=== PATIENT | female | born 1935 ===

== ENCOUNTER 2018-02-28 17:21 | Inpatient (IN) | payer MEDICARE, MEDICAID ==
[2018-02-28] MEDS ORDERED: Iohexol 240 (50 ml) PO ONE (18:43)
[2018-02-28] MEDS ORDERED: Sodium Chloride 0.9% 500 ML IV STA (18:43)
--- NOTE | 2018-02-28 18:45 | ED PDOC ---
HPI: Abdomen Time Seen by Provider: 02/28/18 18:28 Chief Complaint (Nursing): Abdominal Pain Chief Complaint (Provider): Abd pain History Per: Patient History/Exam Limitations: no limitations Onset/Duration Of Symptoms: Days (Sunday) Additional Complaint(s): Pt. with weakness all over since Sunday. Sunday onward started getting nausea/vomit with no blood in it. Has abd pain all over. No diarrhea. No chest pain, dyspnea, headaches, dizziness, back pain. Past Medical History Reviewed: Nursing Documentation, Vital Signs Vital Signs: Last Vital Signs Temp 98.3 F 02/28/18 17:25 Pulse 72 02/28/18 17:25 Resp 18 02/28/18 17:25 BP 181/94 H 02/28/18 17:25 Pulse Ox 99 02/28/18 17:25 - Medical History PMH: Asthma, Dementia, HTN - Surgical History Surgical History: Appendectomy, Tonsillectomy - Family History Family History: States: Unknown Family Hx - Living Arrangements Living Arrangements: With Family - Social History Alcohol: None Drugs: Denies - Home Medications Home Medications: Ambulatory Orders Medication Instructions Recorded Aspirin [Ecotrin] 81 mg PO DAILY 02/28/18 Cholecalciferol (Vitamin D3) 400 unit PO DAILY 02/28/18 [Vitamin D-400] Cyanocobalamin [Vitamin B12] 500 mcg PO DAILY 02/28/18 Lisinopril [Zestril] 5 mg PO DAILY 02/28/18 Memantine HCl/Donepezil HCl 1 each PO DAILY 02/28/18 [Namzaric Titration Pack] - Allergies Allergies/Adverse Reactions: Allergies Allergy/AdvReac Type Severity Reaction Status Date / Time No Known Allergies Allergy Verified 02/28/18 17:24 Review of Systems ROS Statement: Except As Marked, All Systems Reviewed And Found Negative Constitutional: Positive for: Weakness Gastrointestinal: Positive for: Nausea, Vomiting, Abdominal Pain Neurological: Positive for: Weakness Physical Exam - Reviewed Nursing Documentation Reviewed: Yes Vital Signs Reviewed: Yes - Physical Exam Appears: Positive for: Non-toxic, No Acute Distress Head Exam: Positive for: ATRAUMATIC, NORMAL INSPECTION, NORMOCEPHALIC Skin: Positive for: Normal Color, Warm, DRY Eye Exam: Positive for: EOMI, Normal appearance, PERRL ENT: Positive for: Normal ENT Inspection Neck: Positive for: Normal, Painless ROM Cardiovascular/Chest: Positive for: Regular Rate, Rhythm Respiratory: Positive for: CNT, Normal Breath Sounds Gastrointestinal/Abdominal: Positive for: Soft, Tenderness (diffuse) Back: Positive for: Normal Inspection. Negative for: L CVA Tenderness, R CVA Tenderness Extremity: Positive for: Normal ROM. Negative for: Tenderness, Pedal Edema Neurologic/Psych: Positive for: Alert, Oriented - ECG O2 Sat by Pulse Oximetry: 99 Pulse Ox Interpretation: Normal - Progress ED Course And Treament: 1846: Dr. Churchill to take over care. Fu on Ct and labs. Disposition - Clinical Impression Clinical Impression: Abdominal pain - Patient ED Disposition Is Patient to be Admitted: Transfer of Care - Disposition Disposition Time: 18:47 Condition: STABLE Patient Signed Over To: Yousif Churchill
[2018-02-28] MEDS ORDERED: Iohexol 240 (50 ml) ONE (18:52)
[2018-02-28 19:13] LABS: BASO # 0.1 K/uL (0.0-0.2); BASO % 1.1 % (0.0-2.0); EOS # 0.1 K/uL (0.0-0.7); EOS % 0.9 % (0.0-4.0); HEMOGLOBIN 13.8 g/dL (12.0-16.0); LYMPH # 1.3 K/uL (1.0-4.3); LYMPH % 18.3 % (20.0-40.0); MEAN CELL VOLUME 91.8 fl (81.0-99.0); MEAN CORPUSCULAR HEMOGLOBIN 30.8 pg (27.0-31.0); MEAN CORPUSCULAR HGB CONC 33.6 g/dL (33.0-37.0); MEAN PLATELET VOLUME 9.6 fl (7.2-11.7); MONO # 0.7 K/uL (0.0-0.8); MONO % 10.5 % (0.0-10.0); NEUT # 4.8 K/uL (1.8-7.0); NEUT % 69.2 % (50.0-75.0); NRBC % 0.1 % (0.0-0.0); RBC 4.47 Mil/uL (3.80-5.20); RED CELL DISTRIBUTION WIDTH 13.9 % (11.5-14.5); WHITE BLOOD COUNT 6.9 K/uL (4.8-10.8)
[2018-02-28 19:20] LABS: ALB/GLOB RATIO 1.3 (1.0-2.1); ALBUMIN 4.4 g/dL (3.5-5.0); ALT/SGPT 44 U/L (9-52); AST/SGOT 51 U/L (14-36); BLOOD UREA NITROGEN 13 mg/dl (7-17); CALCIUM 9.6 mg/dL (8.4-10.2); GFR NON-AFRICAN AMERICAN > 60; LIPASE 48 U/L (23-300)
--- NOTE | 2018-02-28 19:27 | ED PDOC ---
- Laboratory Results Result Diagrams: 02/28/18 18:45 02/28/18 18:45 - ECG O2 Sat by Pulse Oximetry: 99 (RA) Pulse Ox Interpretation: Normal Medical Decision Making Medical Decision Making: Time: 19:00 --Patient care endorsed from Dr. Sy to provider pending CT scan. 01:23 -CT shows acute sigmoid colitis. Ordering cipro and flagyl. Patient will be admitted for acute colitis. 01:25 -Spoke with Dr. Rico who is covering for Dr. Cedeño. Scribe Attestation: Documented by Ramy Galindo, acting as a scribe for Yousif Cuhrchill MD. Provider Scribe Attestation: All medical record entries made by the Scribe were at my direction and personally dictated by me. I have reviewed the chart and agree that the record accurately reflects my personal performance of the history, physical exam, m edical decision making, and the department course for this patient. I have also personally directed, reviewed, and agree with the discharge instructions and disposition. Disposition Discussed With DrDylan: Michael Rico Counseled Patient/Family Regarding: Studies Performed, Diagnosis - Clinical Impression Clinical Impression: Colitis - POA Present On Arrival: None - Disposition Disposition: Admitted as In-Patient Disposition Time: :23 Condition: FAIR
[2018-02-28 19:38] LABS: SQUAMOUS EPITHIAL 2 /hpf (0-5); URINE BILIRUBIN NEGATIVE (NEGATIVE); URINE BLOOD MODERATE (NEGATIVE); URINE CLARITY SLIGHTY-CLOUDY (Clear); URINE COLOR YELLOW (YELLOW); URINE GLUCOSE (UA) NEG (Normal); URINE LEUKOCYTE ESTERASE TRACE Leu/uL (Negative); URINE PROTEIN 30 mg/dL (NEGATIVE)
[2018-02-28] MEDS ORDERED: Iohexol 300 100 ML IJ ONE (22:10)
[2018-02-28] MEDS ORDERED: Sodium Chloride 0.9% 50 ML IV ONE (22:10)
[2018-03-01] MEDS ORDERED: Ciprofloxacin 400mg/200ml D5W 400 MG/200 ML BAG IV STA (01:23)
[2018-03-01] MEDS ORDERED: metroNIDAZOLE 500mg/100ml NS 100 ML IVPB STA (01:23)
[2018-03-01] MEDS ORDERED: Ciprofloxacin 400mg/200ml D5W 400 MG/200 ML BAG IVPB ONE (03:28)
[2018-03-01] MEDS ORDERED: metroNIDAZOLE 500mg/100ml NS 100 ML IVPB ONE (03:28)
[2018-03-01] MEDS: metroNIDAZOLE 500mg/100ml NS 100 ML IVPB SCH ×2 (08:42→16:35)
[2018-03-01] MEDS: Ciprofloxacin 400mg/200ml D5W 400 MG/200 ML BAG IVPB SCH ×2 (08:42→20:58)
[2018-03-01] MEDS ORDERED: Pneumococcal 23-Valent Vaccine IM ONE (09:00)
[2018-03-01] MEDS ORDERED: MEMANTINE HCL PO SCH (09:00)
[2018-03-01] MEDS ORDERED: DONEPEZIL HCL PO SCH (09:00)
[2018-03-01] MEDS: CYANOCOBALAMIN 500 MCG TAB PO SCH (09:39)
[2018-03-01] MEDS: Cholecalciferol 400 Intl Units Tab PO SCH (09:39)
--- NOTE | 2018-03-01 10:34 | CP.PCM.HP ---
History of Present Illness - History of Present Illness History of Present Illness: 82 yo female with pmhx HTN and cognitive impairment presented to [facility] ED yesterday with complaints of intermittent nausea and NBNB vomiting for 4 days associated with diffuse abdominal pain. Denies any bloody or dark stool. Denies fever, chills, headache, chest pain or dyspnea. In ED, patients CT of A/P showed mild changes of acute sigmoid colitis. No perforation or abscess formation. Patient was admitted for management of acute sigmoid colitis. ROS: all 12 systems reviewed and negative except as mentioned in HPI. PMD: unknown PMHX: HTN, Cognitive impairment, asthma, hearing impairment. PSHX: appendectomy, tonsillectomy and c-sections x 3 Social hx: former smoker, quit many years ago. Denies alcohol or other drugs uses. Lives with her daughter. Family hx: denies hx HTN, DMII or CAD Medications: reviewed, aspirin 81mg, vitmin B12 500 mcg daily, vitamin d 400 unit tab daily, lisinopril 5 mg po daily and memantine/donepezil Allergies: NKDA Present on Admission - Present on Admission Any Indicators Present on Admission: No Review of Systems - Review of Systems All systems: reviewed and no additional remarkable complaints except Past Patient History - Past Medical History & Family History Past Medical History?: Yes - Past Social History Smoking Status: Never Smoked - CARDIAC Hx Cardiac Disorders: Yes (hypertension) Hx Hypertension: Yes - PULMONARY Hx Respiratory Disorders: Yes (asthma) Hx Asthma: Yes - NEUROLOGICAL Hx Neurological Disorder: Yes (Dementia) Hx Dementia: Yes - HEENT Hx HEENT Problems: Yes Other/Comment: hard of hearing, eyeglasses - RENAL Hx Chronic Kidney Disease: No - ENDOCRINE/METABOLIC Hx Endocrine Disorders: No - HEMATOLOGICAL/ONCOLOGICAL Hx Blood Disorders: No Hx AIDS: No Hx Human Immunodeficiency Virus (HIV): No - INTEGUMENTARY Hx Dermatological Problems: No - MUSCULOSKELETAL/RHEUMATOLOGICAL Hx Musculoskeletal Disorders: Yes Hx Falls: Yes (yrs ago per dgtr) - GASTROINTESTINAL Hx Gastrointestinal Disorders: No - GENITOURINARY/GYNECOLOGICAL Hx Genitourinary Disorders: No - PSYCHIATRIC Hx Psychophysiologic Disorder: No Hx Substance Use: No - SURGICAL HISTORY Hx Surgeries: Yes Hx Appendectomy: Yes Hx Tonsillectomy: Yes - ANESTHESIA Hx Anesthesia: Yes Meds Allergies/Adverse Reactions: Allergies Allergy/AdvReac Type Severity Reaction Status Date / Time No Known Allergies Allergy Verified 02/28/18 17:24 Physical Exam - Constitutional Appears: Non-toxic, No Acute Distress - Head Exam Head Exam: ATRAUMATIC, NORMAL INSPECTION, NORMOCEPHALIC - Eye Exam Eye Exam: EOMI, Normal appearance, PERRL - ENT Exam ENT Exam: Mucous Membranes Moist - Neck Exam Neck exam: Positive for: Normal Inspection. Negative for: Meningismus - Respiratory Exam Respiratory Exam: Clear to Auscultation Bilateral, NORMAL BREATHING PATTERN. absent: Rhonchi, Wheezes - Cardiovascular Exam Cardiovascular Exam: REGULAR RHYTHM, RRR, +S1, +S2 - GI/Abdominal Exam GI & Abdominal Exam: Normal Bowel Sounds, Soft Additional comments: mild diffuse tenderness. No rebound or rigidity - Extremities Exam Extremities exam: Positive for: normal capillary refill, normal inspection, pedal pulses present. Negative for: calf tenderness, pedal edema - Back Exam Back exam: absent: CVA tenderness (L), CVA tenderness (R) - Neurological Exam Neurological exam: Alert, Oriented x3 - Psychiatric Exam Psychiatric exam: Normal Affect, Normal Mood - Skin Skin Exam: Normal Color, Warm Results - Vital Signs Recent Vital Signs: Last Vital Signs Temp 97.6 F 03/01/18 07:56 Pulse 56 L 03/01/18 07:56 Resp 20 03/01/18 07:56 BP 112/69 03/01/18 07:56 Pulse Ox 95 03/01/18 07:56 - Labs Result Diagrams: 02/28/18 18:45 02/28/18 18:45 Labs: Laboratory Results - last 24 hr 02/28/18 02/28/18 02/28/18 18:45 18:45 19:00 WBC 6.9 RBC 4.47 Hgb 13.8 Hct 41.0 MCV 91.8 MCH 30.8 MCHC 33.6 RDW 13.9 Plt Count 252 MPV 9.6 Neut % (Auto) 69.2 Lymph % (Auto) 18.3 L Wells % (Auto) 10.5 H Eos % (Auto) 0.9 Baso % (Auto) 1.1 Neut # (Auto) 4.8 Lymph # (Auto) 1.3 Wells # (Auto) 0.7 Eos # (Auto) 0.1 Baso # (Auto) 0.1 Sodium 138 Potassium 3.6 Chloride 99 Carbon Dioxide 29 Anion Gap 14 BUN 13 Creatinine 0.7 Est GFR ( Amer) > 60 Est GFR (Non-Af Amer) > 60 Random Glucose 111 H Lactic Acid Calcium 9.6 Total Bilirubin 1.3 AST 51 H ALT 44 Alkaline Phosphatase 60 Troponin I < 0.0120 Total Protein 7.8 Albumin 4.4 Globulin 3.5 Albumin/Globulin Ratio 1.3 Lipase 48 Urine Color Yellow Urine Clarity Slighty-cloudy Urine pH 6.0 Ur Specific [place] 1.016 Urine Protein 30 Urine Glucose (UA) Neg Urine Ketones Negative Urine Blood Moderate Urine Nitrate Negative Urine Bilirubin Negative Urine Urobilinogen 4.0 H Ur Leukocyte Esterase Trace Urine RBC (Auto) 4 H Urine Microscopic WBC 11 H Ur Squamous Epith Cells 2 03/01/18 03:50 WBC RBC Hgb Hct MCV MCH MCHC RDW Plt Count MPV Neut % (Auto) Lymph % (Auto) Wells % (Auto) Eos % (Auto) Baso % (Auto) Neut # (Auto) Lymph # (Auto) Wells # (Auto) Eos # (Auto) Baso # (Auto) Sodium Potassium Chloride Carbon Dioxide Anion Gap BUN Creatinine Est GFR ( Amer) Est GFR (Non-Af Amer) Random Glucose Lactic Acid 1.1 Calcium Total Bilirubin AST ALT Alkaline Phosphatase Troponin I Total Protein Albumin Globulin Albumin/Globulin Ratio Lipase Urine Color Urine Clarity Urine pH Ur Specific [place] Urine Protein Urine Glucose (UA) Urine Ketones Urine Blood Urine Nitrate Urine Bilirubin Urine Urobilinogen Ur Leukocyte Esterase Urine RBC (Auto) Urine Microscopic WBC Ur Squamous Epith Cells Assessment & Plan (1) Acute colitis Status: Acute (2) Hypertension Status: Chronic (3) Cognitive impairment Status: Chronic - Assessment and Plan (Free Text) Assessment: 82 yo female with pmhx HTN and cognitive impairment presented to [facility] ED yesterday with complaints of intermittent nausea and several epidsodes NBNB vomiting for 4 days associated with diffuse abdominal pain. Patient is admitted for medical management of acute sigmoid colitis. Plan: Admit to med/surg Start IV Cipro and flagyl Pain management Zofran prn for nausea/vomiting PT/OT for gait assistance Resume home medications. Advance diet as tolerated Afebrile, Vitals stable, no wbc f/u AM labs Case d/w Dr. Jacky Tam, pgy-2
--- NOTE | 2018-03-01 10:49 | CT ---
Date of service: 02/28/2018 PROCEDURE: CT Abdomen and Pelvis with contrast HISTORY: Nausea vomiting and abdominal pain. COMPARISON: None. TECHNIQUE: Intravenous contrast dose: 90 cc Omnipaque 300. Radiation dose: Total exam DLP = 547.86. mGy-cm. This CT exam was performed using one or more of the following dose reduction techniques: Automated exposure control, adjustment of the mA and/or kV according to patient size, and/or use of iterative reconstruction technique. FINDINGS: LOWER THORAX: Unremarkable. LIVER: Unremarkable. No gross lesion or ductal dilatation. GALLBLADDER AND BILE DUCTS: Unremarkable. PANCREAS: Unremarkable. No gross lesion or ductal dilatation. SPLEEN: Unremarkable. ADRENALS: Unremarkable. No mass. KIDNEYS AND URETERS: Unremarkable. No hydronephrosis. No solid mass. VASCULATURE: Unremarkable. No aortic aneurysm. BOWEL: Diverticulosis without an acute inflammatory component or other associated pathologic process. This is particularly severe in the sigmoid region. APPENDIX: Normal appendix. PERITONEUM: Unremarkable. No free fluid. No free air. LYMPH NODES: Unremarkable. No enlarged lymph nodes. BLADDER: Unremarkable. REPRODUCTIVE: Prior hysterectomy. BONES: No acute fracture. OTHER FINDINGS: None. IMPRESSION: Severe sigmoid diverticulosis without an acute inflammatory component.
--- NOTE | 2018-03-01 14:19 | CARD ---
APPROVED REPORT Date of service: 02/28/2018 EKG Measurement Heart [id number] <Conclusion> Normal sinus rhythm Minimal voltage criteria for LVH, may be normal variant Septal infarct, age undetermined Abnormal ECG
[2018-03-02] MEDS: metroNIDAZOLE 500mg/100ml NS 100 ML IVPB SCH ×3 (01:30→16:27)
[2018-03-02] MEDS: Cholecalciferol 400 Intl Units Tab PO SCH (08:41)
[2018-03-02] MEDS: Ciprofloxacin 400mg/200ml D5W 400 MG/200 ML BAG IVPB SCH ×2 (08:41→20:54)
[2018-03-02] MEDS: CYANOCOBALAMIN 500 MCG TAB PO SCH (08:42)
[2018-03-02] MEDS ORDERED: Alum-Mag Hydrox-Simethicone Susp (30 mL) PO PRN (12:06)
--- NOTE | 2018-03-02 12:13 | CP.PCM.PN ---
Subjective - Date & Time of Evaluation Date of Evaluation: 03/02/18 Time of Evaluation: 11:00 - Subjective Subjective: patient seen and examined at bedside. continues with abdominal pain/bloating. no acute events overnight. no fever/chills. no diarrhea. Objective - Vital Signs/Intake and Output Vital Signs (last 24 hours): Temp Pulse Resp BP Pulse Ox 98.7 F 66 20 112/75 95 03/02/18 08:26 03/02/18 08:26 03/02/18 08:26 03/02/18 08:26 03/02/18 08:26 - Medications Medications: Current Medications Al Hydrox/Mg Hydrox/Simethicone (Maalox Plus 30 Ml) 30 ml PO Q4 PRN PRN Reason: Indigestion / Heartburn Aspirin (Ecotrin) 81 mg PO DAILY [facility] Last Admin: 03/02/18 08:41 Dose: 81 mg Cyanocobalamin (Vitamin B12) 500 mcg PO DAILY [facility] Last Admin: 03/02/18 08:42 Dose: 500 mcg Home Med (Memantine Hcl/Donepezil Hcl [Namzaric Titration Pack]) 1 each PO DAILY [facility] Ciprofloxacin (Cipro 400mg/200ml Dsw) 400 mg in 200 mls @ 200 mls/hr IVPB Q12 [facility]; Protocol Last Admin: 03/02/18 08:41 Dose: 200 mls/hr Metronidazole (Flagyl 500mg/100ml Ns) 100 mls @ 100 mls/hr IVPB Q8 [facility]; Protocol Last Admin: 03/02/18 08:40 Dose: 100 mls/hr Lisinopril (Zestril) 5 mg PO DAILY [facility] Last Admin: 03/02/18 08:42 Dose: 5 mg Meclizine HCl (Antivert) 12.5 mg PO DAILY PRN PRN Reason: Dizziness Morphine Sulfate (Morphine) 2 mg IVP Q6 PRN PRN Reason: Pain, severe (8-10) Ondansetron HCl (Zofran Odt) 4 mg PO Q8H PRN PRN Reason: Nausea/Vomiting Vitamin D (Vitamin D 400 Intl Units Tab) 400 intlu PO DAILY [facility] Last Admin: 03/02/18 08:41 Dose: 400 intlu - Labs Labs: 02/28/18 18:45 02/28/18 18:45 - Additional Findings Additional findings: - Constitutional Appears: Non-toxic, No Acute Distress - Head Exam Head Exam: ATRAUMATIC, NORMAL INSPECTION, NORMOCEPHALIC - Neck Exam Neck exam: Positive for: Normal Inspection. - Respiratory Exam Respiratory Exam: Clear to Auscultation Bilateral, NORMAL BREATHING PATTERN. absent: Rhonchi, Wheezes - Cardiovascular Exam Cardiovascular Exam: REGULAR RHYTHM, RRR, +S1, +S2 - GI/Abdominal Exam GI & Abdominal Exam: Normal Bowel Sounds, Soft Additional comments: mild diffuse tenderness. No rebound or rigidity - Neurological Exam Neurological exam: Alert, Oriented x3 - Psychiatric Exam Psychiatric exam: Normal Affect, Normal Mood - Skin Skin Exam: Normal Color, Warm Assessment and Plan - Assessment and Plan (Free Text) Assessment: 82 yo female with pmhx HTN and cognitive impairment presented to [facility] ED yesterday with complaints of intermittent nausea and several epidsodes NBNB vomiting for 4 days associated with diffuse abdominal pain. Patient admitted for medical management of acute sigmoid colitis. Plan: c/w IV Cipro and flagyl Pain management Zofran prn for nausea/vomiting PT/OT for gait assistance Resume home medications. Advance diet as tolerated Afebrile, Vitals stable, no wbc discharge planning for tomorrow AM if clinically improved f/u AM labs
[2018-03-02] MEDS ORDERED: Enoxaparin 30 mg Syringe SC SCH (12:30)
[2018-03-02] MEDS: Enoxaparin 40 mg Syringe SC SCH (16:28)
[2018-03-02 23:46] VITALS: RESP 18
[2018-03-03] MEDS: metroNIDAZOLE 500mg/100ml NS 100 ML IVPB SCH ×2 (00:28→10:35)
[2018-03-03 07:27] LABS: MEAN CELL VOLUME 92.9 fl (81.0-99.0); MEAN CORPUSCULAR HGB CONC 33.4 g/dL (33.0-37.0); RBC 4.18 Mil/uL (3.80-5.20)
[2018-03-03 07:54] LABS: ALBUMIN 3.2 g/dL (3.5-5.0); ALT/SGPT 36 U/L (9-52); AST/SGOT 28 U/L (14-36); BLOOD UREA NITROGEN 5 mg/dl (7-17); CALCIUM 8.8 mg/dL (8.4-10.2); GFR NON-AFRICAN AMERICAN > 60
[2018-03-03 08:05] VITALS: PULSE 61; TEMP 98.4; O2SAT 97
[2018-03-03] MEDS: Ciprofloxacin 400mg/200ml D5W 400 MG/200 ML BAG IVPB SCH (09:14)
[2018-03-03] MEDS: Enoxaparin 40 mg Syringe SC SCH (09:22)
[2018-03-03] MEDS: CYANOCOBALAMIN 500 MCG TAB PO SCH (09:23)
[2018-03-03 09:28] VITALS: BP 168/84
[2018-03-03] MEDS: Cholecalciferol 400 Intl Units Tab PO SCH (10:42)
--- NOTE | 2018-03-03 16:02 | CP.PCM.DIS ---
Provider - Provider Date of Admission: 03/02/18 12:06 Attending physician: Nader Cedeño MD Time Spent in preparation of Discharge (in minutes): 30 Diagnosis - Discharge Diagnosis (1) Acute colitis Status: Acute Hospital Course - Lab Results Lab Results: Micro Results 03/01/18 04:20 Blood-Venous Blood Culture - Preliminary NO GROWTH AFTER 48 HOURS 03/01/18 03:50 Blood-Venous Blood Culture - Preliminary NO GROWTH AFTER 48 HOURS Most Recent Lab Values WBC 7.0 K/uL (4.8-10.8) 03/03/18 05:20 RBC 4.18 Mil/uL (3.80-5.20) 03/03/18 05:20 Hgb 13.0 g/dL (12.0-16.0) 03/03/18 05:20 Hct 38.8 % (34.0-47.0) 03/03/18 05:20 MCV 92.9 fl (81.0-99.0) 03/03/18 05:20 MCH 31.0 pg (27.0-31.0) 03/03/18 05:20 MCHC 33.4 g/dL (33.0-37.0) 03/03/18 05:20 RDW 14.0 % (11.5-14.5) 03/03/18 05:20 Plt Count 209 K/uL (130-400) 03/03/18 05:20 MPV 9.6 fl (7.2-11.7) 02/28/18 18:45 Neut % (Auto) 69.2 % (50.0-75.0) 02/28/18 18:45 Lymph % (Auto) 18.3 % (20.0-40.0) L 02/28/18 18:45 [place] % (Auto) 10.5 % (0.0-10.0) H 02/28/18 18:45 Eos % (Auto) 0.9 % (0.0-4.0) 02/28/18 18:45 Baso % (Auto) 1.1 % (0.0-2.0) 02/28/18 18:45 Neut # (Auto) 4.8 K/uL (1.8-7.0) 02/28/18 18:45 Lymph # (Auto) 1.3 K/uL (1.0-4.3) 02/28/18 18:45 [place] # (Auto) 0.7 K/uL (0.0-0.8) 02/28/18 18:45 Eos # (Auto) 0.1 K/uL (0.0-0.7) 02/28/18 18:45 Baso # (Auto) 0.1 K/uL (0.0-0.2) 02/28/18 18:45 Sodium 139 mmol/l (132-148) 03/03/18 05:20 Potassium 3.6 MMOL/L (3.6-5.0) 03/03/18 05:20 Chloride 106 mmol/L (98-107) 03/03/18 05:20 Carbon Dioxide 26 mmol/L (22-30) 03/03/18 05:20 Anion Gap 11 (10-20) 03/03/18 05:20 BUN 5 mg/dl (7-17) L 03/03/18 05:20 Creatinine 0.8 mg/dl (0.7-1.2) 03/03/18 05:20 Est GFR ( Amer) > 60 03/03/18 05:20 Est GFR (Non-Af Amer) > 60 03/03/18 05:20 POC Glucose (mg/dL) 113 mg/dL (65-110) H 03/03/18 10:42 Random Glucose 96 mg/dL (65-105) 03/03/18 05:20 Lactic Acid 1.1 MMOL/L (0.7-2.1) 03/01/18 03:50 Calcium 8.8 mg/dL (8.4-10.2) 03/03/18 05:20 Total Bilirubin 0.7 mg/dl (0.2-1.3) 03/03/18 05:20 AST 28 U/L (14-36) 03/03/18 05:20 ALT 36 U/L (9-52) 03/03/18 05:20 Alkaline Phosphatase 46 U/L (38-126) 03/03/18 05:20 Troponin I < 0.0120 ng/mL (0.00-0.120) 02/28/18 18:45 Total Protein 6.3 G/DL (6.3-8.2) 03/03/18 05:20 Albumin 3.2 g/dL (3.5-5.0) L D 03/03/18 05:20 Globulin 3.1 gm/dL (2.2-3.9) 03/03/18 05:20 Albumin/Globulin Ratio 1.0 (1.0-2.1) 03/03/18 05:20 Lipase 48 U/L (23-300) 02/28/18 18:45 Urine Color Yellow (YELLOW) 02/28/18 19:00 Urine Clarity Slighty-cloudy (Clear) 02/28/18 19:00 Urine pH 6.0 (5.0-8.0) 02/28/18 19:00 Ur Specific [place] 1.016 (1.003-1.030) 02/28/18 19:00 Urine Protein 30 mg/dL (NEGATIVE) 02/28/18 19:00 Urine Glucose (UA) Neg mg/dL (Normal) 02/28/18 19:00 Urine Ketones Negative mg/dL (NEGATIVE) 02/28/18 19:00 Urine Blood Moderate (NEGATIVE) 02/28/18 19:00 Urine Nitrate Negative (NEGATIVE) 02/28/18 19:00 Urine Bilirubin Negative (NEGATIVE) 02/28/18 19:00 Urine Urobilinogen 4.0 mg/dL (0.2-1.0) H 02/28/18 19:00 Ur Leukocyte Esterase Trace Leopoldo/uL (Negative) 02/28/18 19:00 Urine RBC (Auto) 4 /hpf (0-3) H 02/28/18 19:00 Urine Microscopic WBC 11 /hpf (0-5) H 02/28/18 19:00 Ur Squamous Epith Cells 2 /hpf (0-5) 02/28/18 19:00 - Hospital Course Hospital Course: 82 yo female with pmhx HTN and cognitive impairment presented to [facility] ED with complaints of intermittent nausea and several episodes NBNB vomiting for 4 days associated with diffuse abdominal pain. Patient was admitted for medical management of acute sigmoid colitis and treated with Cipro/Flagyl. Patient refused PT while in house. Clinically improved. WBC normal. Vitals stable. Patient to be discharged home with follow up in office this week. c/w meds as prescribed. Discharge Exam - Head Exam Head Exam: ATRAUMATIC, NORMAL INSPECTION, NORMOCEPHALIC - Eye Exam Eye Exam: Normal appearance - Neck Exam Neck exam: Normal Inspection - Respiratory Exam Respiratory Exam: UNREMARKABLE - Cardiovascular Exam Cardiovascular Exam: REGULAR RHYTHM, +S1, +S2 - GI/Abdominal Exam GI & Abdominal Exam: Normal Bowel Sounds, Soft. absent: Tenderness - Extremities Exam Extremities exam: normal inspection - Neurological Exam Neurological exam: Alert, Oriented x3 - Psychiatric Exam Psychiatric exam: Normal Affect, Normal Mood - Skin Skin Exam: Dry, Normal Color, Warm Discharge Plan - Discharge Medications Prescriptions: Ciprofloxacin [Cipro] 500 mg PO BID #5 tab metroNIDAZOLE [Flagyl] 500 mg PO TID #15 tab Ondansetron HCl [Zofran] 4 mg PO TID PRN #15 tablet PRN Reason: Nausea/Vomiting Simethicone [Gas Relief] 80 mg PO TID PRN 5 Days ctb PRN Reason: Dyspepsia - Follow Up Plan Condition: STABLE Disposition: HOME/ ROUTINE Additional Instructions: patient to follow up with PCP this week.
[2018-03-04 08:30] LABS: HEPATITIS B SURFACE AG Negative (NEGATIVE)
[2018-03-04 08:36] LABS: HEPATITIS A IGM NEGATIVE (NEGATIVE); HEPATITIS B CORE AB NEGATIVE (NEGATIVE)
[2018-03-04 08:47] LABS: HEPATITIS C ANTIBODY NEGATIVE (NEGATIVE)
== END 2018-03-03 14:30 | disposition home or self-care (01) | DRG 392 ==
LOC: H.ER 17:21 → INTOOBSV 03-01 01:24 → H.ERHOLD 03-01 01:24 → H.MEDSURG1 03-01 05:34 → OBSVTOIN 03-02 12:06
PROVIDERS: ADMIT Family Medicine; ATTEND Family Medicine
PROC: 3E02340 Introduction of Influenza Vaccine into Muscle, Percutaneous Approach (ICD-10-PCS; principal; 2018-03-01)
PROC: 3E0234Z Introduction of Serum, Toxoid and Vaccine into Muscle, Percutaneous Approach (ICD-10-PCS; 2018-03-01)
DX: K52.9 Noninfective gastroenteritis and colitis, unspecified (principal); F03.90 Unspecified dementia, unspecified severity, without behavioral disturbance, psychotic disturbance, mood disturbance, and anxiety; H91.90 Unspecified hearing loss, unspecified ear; I10 Essential (primary) hypertension; J45.909 Unspecified asthma, uncomplicated; Z53.20 Procedure and treatment not carried out because of patient's decision for unspecified reasons; Z79.82 Long term (current) use of aspirin; Z87.891 Personal history of nicotine dependence; Z90.49 Acquired absence of other specified parts of digestive tract; R41.89 Other symptoms and signs involving cognitive functions and awareness; Z23 Encounter for immunization